=== PATIENT | female | born 1990 | race Caucasian/White ===

== ENCOUNTER 2016-12-07 13:57 | Emergency (ER) | payer OTHER ==
[2016-12-07 15:04] LABS: RED BLOOD COUNT 3.98 M/UL (4.00-5.10); WHITE BLOOD COUNT 12.7 K/UL (4.5-11.0)
[2016-12-07 15:23] LABS: BUN/CREATININE RATIO 23 (0-10)
== END 2016-12-07 17:30 | disposition home or self-care (01) ==
LOC: ER1 13:57
PROVIDERS: Physician Assistant
DX: O23.41 Unspecified infection of urinary tract in pregnancy, first trimester (principal); Z3A.12 12 weeks gestation of pregnancy
CPT/HCPCS: 36415; 76830; 80053; 81001; 83690; 84702; 84703; 85025; 85610; 85730; 86850; 86900; 86901; 96360; 99284

== ENCOUNTER 2016-12-18 03:56 | Emergency (ER) | payer OTHER ==
[2016-12-18 04:40] LABS: HEMOGLOBIN 11.1 gm/dl (12.3-15.3); RED BLOOD COUNT 3.64 M/UL (4.00-5.10); WHITE BLOOD COUNT 9.9 K/UL (4.5-11.0)
[2016-12-18 04:57] LABS: BUN/CREATININE RATIO 36 (0-10)
== END 2016-12-18 07:30 | disposition home or self-care (01) ==
LOC: ER1 03:56
PROVIDERS: Family Medicine
DX: O46.91 Antepartum hemorrhage, unspecified, first trimester (principal); Z3A.11 11 weeks gestation of pregnancy; Z88.1 Allergy status to other antibiotic agents
CPT/HCPCS: 80053; 85025; 86900; 86901; 93005; 96374; 96375; 99284; J2270; J2405; J2550; J7050

== ENCOUNTER 2021-02-06 05:51 | Emergency (ER) | payer OTHER ==
[~2021-02-06 05:51] MED LIST: NAPROXEN 250 M250 MG PO
[2021-02-06 06:47] LABS: HEMOGLOBIN 12.4 gm/dl (12.3-15.3); RED BLOOD COUNT 4.17 M/UL (4.00-5.10); WHITE BLOOD COUNT 6.6 K/UL (4.5-11.0)
[2021-02-06 07:18] LABS: BUN/CREATININE RATIO 16 (0-10)
[2021-02-06] MEDS ORDERED: IBUPROFEN800 MG PO (10:34)
[2021-02-06] MEDS ORDERED: ZOFRAN4 MG PO (10:34)
[2021-02-06] MEDS ORDERED: CYCLOBENZAPRINE10 MG PO (10:34)
[2021-02-06] MEDS ORDERED: MACROBID 100 M100 MG PO (10:36)
== END 2021-02-06 12:10 | disposition home or self-care (01) ==
LOC: ER1 05:51
PROVIDERS: Emergency Medicine
DX: N39.0 Urinary tract infection, site not specified (principal); Z90.49 Acquired absence of other specified parts of digestive tract; Z88.1 Allergy status to other antibiotic agents
CPT/HCPCS: 80053; 81001; 83690; 84703; 85025; 85379; 96374; 96375; 96376; 99284; J1885; J2270; J2405; J7030; Q9967

== ENCOUNTER 2021-02-21 06:53 | Emergency (ER) | payer OTHER ==
[~2021-02-21 06:53] MED LIST changes: +CYCLOBENZAPRINE10 MG PO; +IBUPROFEN800 MG PO; +MACROBID 100 M100 MG PO; +ZOFRAN4 MG PO
[2021-02-21] MEDS ORDERED: ANUSOL HC SUPP1 SUPP PR (08:52)
== END 2021-02-21 09:00 | disposition home or self-care (01) ==
LOC: ER1 06:53
DX: K64.9 Unspecified hemorrhoids (principal); K59.00 Constipation, unspecified; Z88.1 Allergy status to other antibiotic agents
CPT/HCPCS: 74018; 99283

== ENCOUNTER 2021-03-08 14:52 | Emergency (ER) | payer OTHER ==
[~2021-03-08 14:52] MED LIST changes: +ANUSOL HC SUPP1 SUPP PR
[2021-03-08 15:49] LABS: HEMOGLOBIN 11.9 gm/dl (12.3-15.3); RED BLOOD COUNT 4.11 M/UL (4.00-5.10)
[2021-03-08 16:24] LABS: BUN/CREATININE RATIO 15 (0-10)
[2021-03-08] MEDS ORDERED: ZOFRAN ODT 4 MG4 MG SL (18:36)
[2021-03-08] MEDS ORDERED: K-DUR TAB 20 M20 MEQ PO (18:36)
== END 2021-03-08 18:56 | disposition home or self-care (01) ==
LOC: ER1 14:52
PROVIDERS: Emergency Medicine
DX: E86.0 Dehydration (principal); E87.6 Hypokalemia; Z88.1 Allergy status to other antibiotic agents
CPT/HCPCS: 70450; 71045; 80053; 80307; 81001; 82550; 82553; 83605; 83690; 83735; 83874; 84484; 84703; 85025; 93005; 96374; 99285; G0480; J1885; J2405

== ENCOUNTER 2021-07-02 11:22 | Emergency (ER) | payer OTHER ==
[~2021-07-02 11:22] MED LIST changes: +K-DUR TAB 20 M20 MEQ PO; +ZOFRAN ODT 4 MG4 MG SL
[2021-07-02 12:54] LABS: HEMOGLOBIN 12.8 gm/dl (12.3-15.3); RED BLOOD COUNT 4.37 M/UL (4.00-5.10); WHITE BLOOD COUNT 4.8 K/UL (4.5-11.0)
[2021-07-02 13:10] LABS: BUN/CREATININE RATIO 15 (0-10)
== END 2021-07-02 15:55 | disposition home or self-care (01) ==
LOC: ER1 11:22
PROVIDERS: Physician Assistant
DX: J40 Bronchitis, not specified as acute or chronic (principal); Z88.8 Allergy status to other drugs, medicaments and biological substances; Z20.822 Contact with and (suspected) exposure to COVID-19
CPT/HCPCS: 71045; 80053; 85025; 85379; 96372; 99283; J1100; J1885; U0002

== ENCOUNTER 2021-08-13 12:56 | Emergency (ER) | payer OTHER | END 2021-08-13 14:10 | disposition home or self-care (01) | LOC: ER1 12:56 | DX: U07.1 COVID-19 (principal) | CPT/HCPCS: 0240U; 87081; 87880; 99283 ==

== ENCOUNTER 2021-08-16 16:56 | Emergency (ER) | payer OTHER ==
[2021-08-16 17:56] LABS: HEMOGLOBIN 12.9 gm/dl (12.3-15.3); RED BLOOD COUNT 4.31 M/UL (4.00-5.10); WHITE BLOOD COUNT 3.4 K/UL (4.5-11.0)
[2021-08-16 18:13] LABS: CORONAVIRUS HKU1 Not Detected (Not Detectd); CORONAVIRUS NL63 Not Detected (Not Detectd); CORONAVIRUS OC43 Not Detected (Not Detectd); CORONOAVIRUS 229E Not Detected (Not Detectd); HUMAN METAPNEUMOVIRUS Not Detected (Not Detectd); HUMAN RHINOVIRUS/ENTEROVIRUS Not Detected (Not Detectd); INFLUENZA A Not Detected (Not Detectd); INFLUENZA B Not Detected (Not Detectd); PARAINFLUENZA VIRUS 1 Not Detected (Not Detectd); PARAINFLUENZA VIRUS 2 Not Detected (Not Detectd); PARAINFLUENZA VIRUS 3 Not Detected (Not Detectd)
[2021-08-16 18:14] LABS: BORDETELLA PARAPERTUSSIS Not Detected (Not Detectd); BORDETELLA PERTUSSIS Not Detected (Not Detectd); CHLAMYDIA PNEUMONIAE Not Detected (Not Detectd); MYCOPLASMA PNEUMONIAE Not Detected (Not Detectd); PARAINFLUENZA VIRUS 4 Not Detected (Not Detectd); RESPIRATORY SYNCYTIAL VIRUS Not Detected (Not Detectd)
[2021-08-16 18:30] LABS: BUN/CREATININE RATIO 16 (0-10)
[2021-08-16 20:04] LABS: SARS-CoV-2 DETECTED (Not Detectd)
== END 2021-08-16 19:45 | disposition home or self-care (01) ==
LOC: ER1 16:56
PROVIDERS: Preventive Medicine Occupational Medicine
DX: U07.1 COVID-19 (principal)
CPT/HCPCS: 71045; 80053; 83605; 85025; 85652; 86140; 87633; 99283